=== PATIENT | female | born 1940 | race Caucasian/White ===

== ENCOUNTER 2017-06-14 13:54 | Emergency (ER) | payer MEDICARE ==
[~2017-06-14] VITALS: Ht 162.6 cm; Wt 82.7 kg
[2017-06-14 14:42] LABS: HEMATOCRIT 41.5 % (34.6-47.8); HEMOGLOBIN 13.7 g/dL (11.7-16.4); WHITE BLOOD COUNT 6.6 x10^3/uL (3.4-10)
[2017-06-14 14:54] LABS: ASPARTATE AMINO TRANSFERASE 15 U/L (15-37); BLOOD UREA NITROGEN 17 mg/dL (7-18)
[2017-06-14] MEDS ORDERED: ALPR0.254 PO (14:54)
[2017-06-14] MEDS ORDERED: ASPI-496 PO (14:54)
[2017-06-14] MEDS ORDERED: LEVO88TA4 PO (14:54)
[2017-06-14] MEDS ORDERED: FEXO180T15 PO (14:54)
[2017-06-14] MEDS ORDERED: BUPR75TA6 PO (14:54)
[2017-06-14] MEDS ORDERED: ATEN25TA PO (14:54)
[2017-06-14] MEDS ORDERED: RANI300T PO (14:55)
[2017-06-14] MEDS ORDERED: PRAV10TA2 PO (14:55)
[2017-06-14] MEDS ORDERED: LISI1TAB5 PO (14:55)
[2017-06-14] MEDS ORDERED: WARF5TAB7 PO (14:55)
[2017-06-14] MEDS ORDERED: ESOM20CA PO (14:55)
[2017-06-14] MEDS ORDERED: OXYB5TAB7 PO (14:55)
[2017-06-14] MEDS ORDERED: WARF2.5T73 PO (14:55)
[2017-06-14] MEDS ORDERED: SERT50TA5 PO (14:55)
[2017-06-14 15:37] VITALS: BP 175/83
[2017-06-14 16:07] LABS: PATH.CAST-FLAG NOT PRESENT; SPERM-FLAG NOT PRESENT; SRC-FLAG NOT PRESENT; XTAL-FLAG NOT PRESENT; YLC-FLAG NOT PRESENT
== END 2017-06-14 16:57 | disposition home or self-care (01) ==
LOC: ED 16:45
DX: N39.0 Urinary tract infection, site not specified (principal); M54.41 Lumbago with sciatica, right side; I10 Essential (primary) hypertension; I48.91 Unspecified atrial fibrillation; Z88.0 Allergy status to penicillin
CPT/HCPCS: 36415; 72110; 80053; 81001; 85025; 87077; 87086; 87186; 99285

== ENCOUNTER → 2020-05-30 | Outpatient (CLI) | payer MEDICARE ==
[~2020-05-30] MED LIST: ALPR0.254 PO; ASPI-496 PO; ATEN25TA PO; BUPR75TA6 PO; ESOM20CA PO; FEXO180T15 PO; LEVO88TA4 PO; LISI1TAB19 PO; OXYB5TAB10 PO; PRAV10TA2 PO; RANI300T PO; REGADENOSON 0.4 MG/5 ML SYRINGE ONE; SERT50TA28 PO; WARF-36 PO; WARF2.5T32 PO
== END | disposition home or self-care (01) ==
LOC: CFH 06:41
PROVIDERS: ATTEND Internal Medicine Cardiovascular Disease
DX: I08.3 Combined rheumatic disorders of mitral, aortic and tricuspid valves (principal); I10 Essential (primary) hypertension; I48.0 Paroxysmal atrial fibrillation
CPT/HCPCS: 78452; 93017; 93306; A9502; J2785

== ENCOUNTER → 2020-12-26 | Outpatient (CLI) | payer MEDICARE ==
[~2020-12-26] MED LIST changes: -LISI1TAB19 PO; +LISI1TAB39 PO; -REGADENOSON 0.4 MG/5 ML SYRINGE ONE
== END | disposition home or self-care (01) ==
LOC: CVU 13:41
PROVIDERS: ATTEND Family Medicine
DX: I08.3 Combined rheumatic disorders of mitral, aortic and tricuspid valves (principal); I48.91 Unspecified atrial fibrillation; R60.0 Localized edema; E78.5 Hyperlipidemia, unspecified; I11.9 Hypertensive heart disease without heart failure; Z87.891 Personal history of nicotine dependence
CPT/HCPCS: 93306

== ENCOUNTER 2021-05-02 05:44 | Observation (INO) | payer MEDICARE ==
[~2021-05-02] VITALS: Ht 162.6 cm; Wt 87.4 kg
[~2021-05-02 05:44] MED LIST changes: +ACET325T26 PO; +AMLO-210 PO; +BISA10SU4 PR; +CEFD300C37 PO; +ESOM20SU PO-COUM; +HYDR25TA6 PO; +LISI-170 PO; +METO-93 PO; +METO200T47 PO; +METO25TA91 PO; +POLY17PO5 PO; +PRAM0.5T5 PO; +RIVA10TA2 PO; +SENN-211 PO; +TRAZ50TA66 PO
--- NOTE | 2021-05-02 05:54 | NUR ---
pt biba from [facility] due to CP that started around 0300. pt states pain radiates from right breast to back and jaw. hx of a-fib, recent pace maker placement. pt placed on spo2/bp/ecg monitoring on arrival, gross neuro intact, pt in a-fib currently on xarelto. 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 amanda siegel at bs for eval and poc. Patient is resting comfortably in bed. Bed in lowest, rails engaged, call light on lap. WCTM.
[2021-05-02] MEDS ORDERED: SODIUM CHLORIDE FLUSH 10ML SYR IVF ONE (06:00)
[2021-05-02] MEDS ORDERED: DILTIAZEM 5 MG/ML, 5ML IV ONE (06:00)
[2021-05-02] MEDS ORDERED: DILTIAZEM 5 MG/ML, 5ML ONE (06:25)
[2021-05-02 06:34] LABS: BASOPHILS % (AUTO) 1 % (0-1); EOSINOPHILS % (AUTO) 3 % (1-7); LYMPHOCYTES % (AUTO) 27 % (22-44); MEAN CORPUSCULAR HEMOGLOBIN 28.2 pg (27.0-34.8); MEAN CORPUSCULAR HGB CONC 33.7 g/dL (32.4-35.8); MEAN PLATELET VOLUME 8.1 fL (7.4-10.4); MONOCYTES % (AUTO) 7 % (2-9); NEUTROPHILS % (AUTO) 62 % (42-75); PLATELET COUNT 249 x10^3/uL (130-400); RED BLOOD COUNT 5.07 x10^6/uL (3.82-5.3); RED CELL DISTRIBUTION WIDTH 14.5 % (9.6-15.2)
[2021-05-02 06:42] LABS: ALANINE AMINOTRANSFERASE 17 U/L (12-78); ALBUMIN 2.9 g/dL (3.4-5.0); ANION GAP 9 mmol/L (5-15); CALCIUM 9.3 mg/dL (8.5-10.1); CHLORIDE 101 mmol/L (98-107); CREATININE 1.13 mg/dL (0.55-1.02)
--- NOTE | 2021-05-02 06:45 | NUR ---
THIS RN MEDICATED PT PER DEC, DURING MED ADMINISTRATION PT BECAME SLIGHTLY HYPOTENSIVE, ERP SAHM AWARE AND RN ORDERED TO HOLD LAST 5MG OF DILT. ERP ORDERED FLUID BOLUS, PT MEDICATED PER DEC. PT LINENS CHANGED FOR COMFORT AND PROVIDED WARM BLANKETS. Patient is resting comfortably in bed. Bed in lowest, rails engaged, call light on lap. DAUGHTER AT BS. REPORT TO YOLANDA RN, PT CARE TRANSFERRED AT THIS TIME.
[2021-05-02 06:46] LABS: ALKALINE PHOSPHATASE 79 U/L (45-117); BILIRUBIN,TOTAL 0.5 mg/dL (0.2-1.0); TOTAL PROTEIN 6.9 g/dL (6.4-8.2); TROPONIN I < 0.015 ng/mL (0.000-0.045)
--- NOTE | 2021-05-02 06:59 | NUR ---
BEDSIDE REPORT FROM BOAZ. PT HYPOTENSIVE AT 82/59. 15MG OR 20MG DILT ADMISTERED PREVIOUSLY BY BOAZ ZAMARRIPA. DR. [place] AWARE. PER MD HOLD REST OF DILT AND GIVE 250ML BOLUS.
[2021-05-02] MEDS ORDERED: SODIUM CHLORIDE 0.9% 1,000ML IVBOLUS ONE ×3 (07:00→08:00)
[2021-05-02] MEDS ORDERED: HYDR-826 PO (07:07)
[2021-05-02] MEDS ORDERED: OMEP-110 PO (07:07)
[2021-05-02] MEDS ORDERED: LISI-167 PO (07:07)
--- NOTE | 2021-05-02 07:20 | NUR ---
2ND BOLUS FINISHED. PT BP 91/55 WITH MAP OF 67. MD AWARE. PT RESTING IN BED COMFORTABLY WITH DAUGHTER AT BEDSIDE. THIS RN TO MONITOR CLOSELY.
[2021-05-02] MEDS ORDERED: POTASSIUM CHLORIDE 20 MEQ TAB.ER.PRT PO ONE (08:00)
--- NOTE | 2021-05-02 08:00 | NUR ---
PT BP 72/51. DR. QUINTANA NOTIFED. 500 CC BOLUS HUNG ORDERED.
[2021-05-02] MEDS ORDERED: POTASSIUM CHLORIDE 20 MEQ TAB.ER.PRT ONE (08:15)
--- NOTE | 2021-05-02 08:20 | NUR ---
IVF REQ SLIP SENT TO PHARMACY
--- NOTE | 2021-05-02 08:26 | NUR ---
pt medicated per emar. vss. juann.
[2021-05-02 10:23] VITALS: BP 98/61
[2021-05-02] MEDS ORDERED: METOPROLOL SUCCINATE 25 MG TAB.ER.24H PO SCH (12:00)
[2021-05-02] MEDS: NS + 20MEQ KCL 1,000 ML IV SCH ×2 (12:09→17:26)
[2021-05-02] MEDS: PANTOPRAZOLE 40MG TABLET PO SCH (12:37)
[2021-05-02] MEDS ORDERED: ACETAMINOPHEN 325 MG TABLET PO PRN (13:00)
[2021-05-02 14:10] LABS: TROPONIN I 0.229 ng/mL (0.000-0.045)
[2021-05-02 14:50] VITALS: BP 105/70
[2021-05-02 15:05] VITALS: BP 98/61
[2021-05-02] MEDS ORDERED: POLYETHYLENE GLYCOL 17 GM PACKET PO PRN (18:00)
[2021-05-02] MEDS ORDERED: BISACODYL 10 MG SUPP PR PRN (18:00)
[2021-05-02 19:06] LABS: TROPONIN I 0.224 ng/mL (0.000-0.045)
[2021-05-02] MEDS: SENNOSIDES 8.6 MG TABLET PO SCH (20:35)
[2021-05-02 20:39] VITALS: BP 159/90
[2021-05-02] MEDS ORDERED: TRAZODONE 50MG TABLET PO SCH (21:00)
[2021-05-02] MEDS ORDERED: RIVAROXABAN 10 MG TABLET PO SCH (21:00)
[2021-05-02] MEDS ORDERED: PRAVASTATIN 20 MG TABLET PO SCH (21:00)
[2021-05-03 00:30] VITALS: BP 163/80
[2021-05-03 05:30] LABS: ANION GAP 5 mmol/L (5-15); CALCIUM 8.8 mg/dL (8.5-10.1); CHLORIDE 110 mmol/L (98-107)
[2021-05-03] MEDS ORDERED: LEVOTHYROXINE 88 MCG TABLET PO SCH (06:00)
[2021-05-03 07:09] VITALS: BP 183/93
[2021-05-03 08:18] VITALS: BP 171/94
[2021-05-03] MEDS ORDERED: REGADENOSON 0.4 MG/5 ML SYRINGE ONE (08:18)
[2021-05-03] MEDS: SENNOSIDES 8.6 MG TABLET PO SCH (08:44)
[2021-05-03] MEDS: PANTOPRAZOLE 40MG TABLET PO SCH (08:44)
[2021-05-03] MEDS ORDERED: METOPROLOL SUCCINATE 25 MG TAB.ER.24H PO SCH (09:00)
[2021-05-03] MEDS ORDERED: BUPROPION 100 MG TABLET PO SCH (09:00)
[2021-05-03 10:44] VITALS: BP 164/91
[2021-05-03] MEDS ORDERED: LISINOPRIL 10 MG TABLET PO SCH (12:00)
[2021-05-03 12:31] VITALS: BP 150/77
[2021-05-03] MEDS ORDERED: METO-93 PO (13:24)
== END 2021-05-03 15:04 ==
LOC: SUATTDRO 07:48 → ED 08:08 → EDIP 08:52 → INTOOBSV 08:52 → 5SO 09:38
PROVIDERS: ADMIT Internal Medicine; ATTEND Internal Medicine
DX: I48.20 Chronic atrial fibrillation, unspecified (principal); I48.0 Paroxysmal atrial fibrillation; I20.0 Unstable angina; I95.2 Hypotension due to drugs; R53.81 Other malaise; E03.9 Hypothyroidism, unspecified; I12.9 Hypertensive chronic kidney disease with stage 1 through stage 4 chronic kidney disease, or unspecified chronic kidney disease; N18.4 Chronic kidney disease, stage 4 (severe); I08.1 Rheumatic disorders of both mitral and tricuspid valves; R60.9 Edema, unspecified; E78.5 Hyperlipidemia, unspecified; I21.A1 Myocardial infarction type 2; F41.9 Anxiety disorder, unspecified; E87.6 Hypokalemia; G25.81 Restless legs syndrome; N32.89 Other specified disorders of bladder; K21.9 Gastro-esophageal reflux disease without esophagitis; Z87.891 Personal history of nicotine dependence; Z88.0 Allergy status to penicillin; Z79.899 Other long term (current) drug therapy; Z90.710 Acquired absence of both cervix and uterus; Z79.01 Long term (current) use of anticoagulants; Z66 Do not resuscitate
CPT/HCPCS: 36415; 71045; 78452; 80048; 80053; 83735; 83880; 84484; 85025; 93005; 93017; 96361; 96365; 96366; 96375; 99285; A9502; G0378; J2785; J3480; J7030